=== PATIENT | male | born 1950 | race Caucasian/White ===

== ENCOUNTER 2023-02-01 04:38 | Emergency (ER) | payer MEDICARE, BC ==
[2023-02-01 05:28] LABS: HEMATOCRIT 42.5 % (38.3-50.1); HEMOGLOBIN 13.8 g/dL (12.9-17.7); MEAN CORPUSCULAR HEMOGLOBIN 28.5 pg (27.0-33.3); MEAN CORPUSCULAR HGB CONC 32.5 g/dL (28.7-35.3); MEAN CORPUSCULAR VOLUME 87.8 fL (80.8-98.7); PLATELET COUNT,PLT 43 x10(3)uL (117-477); RED BLOOD CELL COUNT 4.85 x10(6)uL (3.90-5.90); WHITE BLOOD CELL COUNT,WBC 21.8 x10-3/uL (3.2-10.1)
[2023-02-01] MEDS: Nitroglycerin 0.4 MG Tab.SL SL PRN ×2 (05:30→05:38)
[2023-02-01 05:33] LABS: BLOOD UREA NITROGEN,BUN 13 mg/dL (7-18); BUN/CREATININE RATIO 11.8 (9-20); CALCIUM 8.3 mg/dL (8.6-10.2); CARBON DIOXIDE,CO2 28 mmol/L (21-32); CHLORIDE,CL 104 mmol/L (100-110); CREATININE 1.1 mg/dL (0.70-1.30); EST CRCL DRUG DOSING (CG) 66.58 mL/min; ESTIMATED GFR 70 mL/min (>60); GLUCOSE RANDOM 123 mg/dL (80-116); POTASSIUM,K 3.7 mmol/L (3.5-5.3); SODIUM,NA 140 mmol/L (135-145)
[2023-02-01 05:37] LABS: A/G RATIO 0.7; ALANINE AMINOTRANSFERASE,ALT 21 U/L (12-36); ALKALINE PHOSPHATASE 213 IU/L (56-112); ASPARTATE AMNIOTRANSFERASE,AST 46 IU/L (5-25); BILIRUBIN TOTAL 0.8 mg/dL (0.1-1.3); PROTEIN TOTAL,TP 7.4 g/dL (6.0-8.0)
[2023-02-01] MEDS ORDERED: Aspirin 81 MG Tab.Chew PO ONE (05:40)
[2023-02-01 05:41] LABS: INR 1.35 (1.00-1.24); PROTHROMBIN TIME 13.8 sec (9.0-11.1); PTT,PARTIAL THROMBOPLSTIN TIME 33.1 SECONDS (24.4-33.2)
[2023-02-01 05:58] LABS: BAND PERCENT MAN 6 % (0-6); LYMPHOCYTES PERCENT MAN 6 % (13-37); METAMYELOCYTE PERCENT MAN 3 % (0-0); MONOCYTES PERCENT MAN 6 % (4-12); SEG NEUTROPHILS PERCENT MAN 79 % (46-82)
== END 2023-02-01 06:10 | disposition home or self-care (01) ==
LOC: FB.ED 04:38
DX: I25.10 Atherosclerotic heart disease of native coronary artery without angina pectoris (principal); E78.00 Pure hypercholesterolemia, unspecified; I10 Essential (primary) hypertension; I25.2 Old myocardial infarction; J45.909 Unspecified asthma, uncomplicated; E66.9 Obesity, unspecified; Z68.38 Body mass index [BMI] 38.0-38.9, adult; Z79.899 Other long term (current) drug therapy
CPT/HCPCS: 36415; 80053; 84484; 85025; 85610; 85730; 93005; 99285; A9270

== ENCOUNTER 2023-04-01 08:28 | Inpatient (IN) | payer MEDICARE, BC ==
[2023-04-01] MEDS ORDERED: Ondansetron 4 MG Tab.DIS PO PRN (15:10)
[2023-04-01] MEDS ORDERED: Prochlorperazine 10 MG Tab PO PRN (15:10)
[2023-04-01] MEDS ORDERED: Sennosides/Docusate Sodium 50-8.6 MG Tab PO PRN (15:10)
[2023-04-01] MEDS ORDERED: Albuterol 8 GM Inhaler INH PRN (15:10)
[2023-04-01] MEDS ORDERED: Bisacodyl 10 MG Supp RECTAL PRN (15:10)
[2023-04-01] MEDS ORDERED: Benzocaine/Cetylpyridinium/Menthol Lozenge MUCMEM PRN (15:44)
[2023-04-01] MEDS ORDERED: Benzonatate 100 MG Cap PO SCH (16:00)
[2023-04-01] MEDS: Benzonatate 100 MG Cap PO PRN (19:21)
[2023-04-01] MEDS: Rosuvastatin 20 MG Tab PO SCH (20:57)
[2023-04-01] MEDS: Formoterol/Mometasone 200-5 MCG 8.8 GM Inhaler IH SCH (20:57)
[2023-04-01] MEDS: Cefuroxime 250 MG Tab PO SCH (20:57)
[2023-04-01] MEDS: Tamsulosin 0.4 MG Cap.ER PO SCH (20:58)
[2023-04-01] MEDS: Melatonin 3 MG Tab PO SCH (20:58)
[2023-04-01] MEDS: valACYclovir 500 MG Tab PO SCH (20:59)
[2023-04-02] MEDS: Benzonatate 100 MG Cap PO PRN ×2 (02:00→20:20)
[2023-04-02] MEDS: Albuterol/Ipratropium 3.0-0.5 MG/3 ML Neb Soln NEB PRN ×3 (02:09→21:53)
[2023-04-02] MEDS: Potassium Chloride 20 MEQ Tab.ER PO SCH (08:19)
[2023-04-02] MEDS: Multivitamins with Iron/Calcium/Folic Acid/Minerals Tab PO SCH (08:20)
[2023-04-02] MEDS: Formoterol/Mometasone 200-5 MCG 8.8 GM Inhaler IH SCH ×2 (08:20→20:10)
[2023-04-02] MEDS: Furosemide 40 MG Tab PO SCH (08:20)
[2023-04-02] MEDS: Aspirin 81 MG Tab.Chew PO SCH (08:20)
[2023-04-02] MEDS: Cefuroxime 250 MG Tab PO SCH ×2 (08:20→20:09)
[2023-04-02] MEDS: VENETOCLAX 100 MG PO SCH (08:21)
[2023-04-02] MEDS: valACYclovir 500 MG Tab PO SCH ×2 (08:21→20:11)
[2023-04-02] MEDS: Metoprolol Succinate 50 MG Tab.ER PO SCH (09:12)
[2023-04-02] MEDS: Rosuvastatin 20 MG Tab PO SCH (20:10)
[2023-04-02] MEDS: Tamsulosin 0.4 MG Cap.ER PO SCH (20:10)
[2023-04-02] MEDS: Melatonin 3 MG Tab PO SCH (20:11)
[2023-04-03] MEDS: guaiFENesin/Dextromethorphan 100-10 MG/5 ML Soln 5 ML Cup PO PRN (00:50)
[2023-04-03] MEDS: Albuterol/Ipratropium 3.0-0.5 MG/3 ML Neb Soln NEB PRN ×3 (03:33→20:50)
[2023-04-03] MEDS: Benzonatate 100 MG Cap PO PRN ×2 (03:34→18:25)
[2023-04-03] MEDS: Aspirin 81 MG Tab.Chew PO SCH (08:24)
[2023-04-03] MEDS: Potassium Chloride 20 MEQ Tab.ER PO SCH (08:24)
[2023-04-03] MEDS: valACYclovir 500 MG Tab PO SCH ×2 (08:24→20:49)
[2023-04-03] MEDS: Multivitamins with Iron/Calcium/Folic Acid/Minerals Tab PO SCH (08:24)
[2023-04-03] MEDS: Furosemide 40 MG Tab PO SCH (08:24)
[2023-04-03] MEDS: VENETOCLAX 100 MG PO SCH (08:25)
[2023-04-03] MEDS: Cefuroxime 250 MG Tab PO SCH (08:25)
[2023-04-03] MEDS: Formoterol/Mometasone 200-5 MCG 8.8 GM Inhaler IH SCH ×2 (08:25→20:48)
[2023-04-03] MEDS: Metoprolol Succinate 50 MG Tab.ER PO SCH (13:33)
[2023-04-03] MEDS: Rosuvastatin 20 MG Tab PO SCH (20:48)
[2023-04-03] MEDS: Tamsulosin 0.4 MG Cap.ER PO SCH (20:48)
[2023-04-03] MEDS: Melatonin 3 MG Tab PO SCH (20:49)
[2023-04-04] MEDS: Albuterol/Ipratropium 3.0-0.5 MG/3 ML Neb Soln NEB PRN ×4 (01:03→22:22)
[2023-04-04] MEDS: Benzonatate 100 MG Cap PO PRN ×2 (02:25→22:22)
[2023-04-04] MEDS: guaiFENesin/Dextromethorphan 100-10 MG/5 ML Soln 5 ML Cup PO PRN ×2 (02:27→22:22)
[2023-04-04 06:42] LABS: HEMOGLOBIN 7.8 g/dL (12.9-17.7)
[2023-04-04 06:44] LABS: HEMATOCRIT 23.2 % (38.3-50.1); MEAN CORPUSCULAR HEMOGLOBIN 32.3 pg (27.0-33.3); MEAN CORPUSCULAR HGB CONC 33.8 g/dL (28.7-35.3); MEAN CORPUSCULAR VOLUME 95.6 fL (80.8-98.7); PLATELET COUNT,PLT 159 x10(3)uL (117-477); RED BLOOD CELL COUNT 2.42 x10(6)uL (3.90-5.90); RED CELL DISTRIBUTION WIDTH 22.7 % (12.4-15.0)
[2023-04-04 06:49] LABS: A/G RATIO 0.4; ALANINE AMINOTRANSFERASE,ALT 56 U/L (12-36); ALKALINE PHOSPHATASE 347 IU/L (56-112); ASPARTATE AMNIOTRANSFERASE,AST 80 IU/L (5-25); BILIRUBIN TOTAL 1.1 mg/dL (0.1-1.3); BLOOD UREA NITROGEN,BUN 21 mg/dL (7-18); BUN/CREATININE RATIO 23.3 (9-20); CALCIUM 7.1 mg/dL (8.6-10.2); CARBON DIOXIDE,CO2 31 mmol/L (21-32); CHLORIDE,CL 101 mmol/L (100-110); CREATININE 0.9 mg/dL (0.70-1.30); EST CRCL DRUG DOSING (CG) 80.15 mL/min; ESTIMATED GFR 89 mL/min (>60); GLUCOSE RANDOM 100 mg/dL (80-116); LACTATE DEHYDROGENASE,LDH 91 U/L (85-227); POTASSIUM,K 3.3 mmol/L (3.5-5.3); PROTEIN TOTAL,TP 5.1 g/dL (6.0-8.0); SODIUM,NA 135 mmol/L (135-145)
[2023-04-04 06:51] LABS: ALBUMIN 1.4 g/dL (3.2-4.6); WHITE BLOOD CELL COUNT,WBC 0.2 x10-3/uL (3.2-10.1)
[2023-04-04 07:28] LABS: LYMPHOCYTES PERCENT MAN 82 % (13-37); SEG NEUTROPHILS PERCENT MAN 14 % (46-82)
[2023-04-04 07:29] LABS: MONOCYTES PERCENT MAN 4 % (4-12)
[2023-04-04 07:32] LABS: ANISOCYTOSIS FEW
[2023-04-04] MEDS: Multivitamins with Iron/Calcium/Folic Acid/Minerals Tab PO SCH (08:35)
[2023-04-04] MEDS: Potassium Chloride 20 MEQ Tab.ER PO SCH (08:35)
[2023-04-04] MEDS: Aspirin 81 MG Tab.Chew PO SCH (08:35)
[2023-04-04] MEDS: Furosemide 40 MG Tab PO SCH (08:35)
[2023-04-04] MEDS: Formoterol/Mometasone 200-5 MCG 8.8 GM Inhaler IH SCH ×2 (08:38→20:27)
[2023-04-04] MEDS: valACYclovir 500 MG Tab PO SCH ×2 (08:38→20:28)
[2023-04-04] MEDS: VENETOCLAX 100 MG PO SCH (08:38)
[2023-04-04] MEDS: Melatonin 3 MG Tab PO SCH (20:28)
[2023-04-04] MEDS: Tamsulosin 0.4 MG Cap.ER PO SCH (20:28)
[2023-04-04] MEDS: Rosuvastatin 20 MG Tab PO SCH (20:29)
[2023-04-05] MEDS: Potassium Chloride 20 MEQ Tab.ER PO SCH (08:42)
[2023-04-05] MEDS: Furosemide 40 MG Tab PO SCH (08:43)
[2023-04-05] MEDS: Aspirin 81 MG Tab.Chew PO SCH (08:43)
[2023-04-05] MEDS: valACYclovir 500 MG Tab PO SCH ×2 (08:43→20:11)
[2023-04-05] MEDS: Multivitamins with Iron/Calcium/Folic Acid/Minerals Tab PO SCH (08:43)
[2023-04-05] MEDS: Formoterol/Mometasone 200-5 MCG 8.8 GM Inhaler IH SCH ×2 (08:43→20:11)
[2023-04-05] MEDS: Benzonatate 100 MG Cap PO PRN ×2 (17:10→23:05)
[2023-04-05] MEDS: Albuterol/Ipratropium 3.0-0.5 MG/3 ML Neb Soln NEB PRN ×2 (17:10→23:05)
[2023-04-05] MEDS: Rosuvastatin 20 MG Tab PO SCH (20:11)
[2023-04-05] MEDS: Melatonin 3 MG Tab PO SCH (20:11)
[2023-04-05] MEDS: Tamsulosin 0.4 MG Cap.ER PO SCH (20:11)
[2023-04-05] MEDS: guaiFENesin/Dextromethorphan 100-10 MG/5 ML Soln 5 ML Cup PO PRN (23:05)
[2023-04-06 05:58] LABS: HEMATOCRIT 23.1 % (38.3-50.1); HEMOGLOBIN 7.8 g/dL (12.9-17.7); MEAN CORPUSCULAR HEMOGLOBIN 32.7 pg (27.0-33.3); MEAN CORPUSCULAR HGB CONC 33.6 g/dL (28.7-35.3); MEAN CORPUSCULAR VOLUME 97.2 fL (80.8-98.7); MEAN PLATELET VOLUME 7.3 fL (6.7-11.0); PLATELET COUNT,PLT 204 x10(3)uL (117-477); RED BLOOD CELL COUNT 2.38 x10(6)uL (3.90-5.90); RED CELL DISTRIBUTION WIDTH 22.4 % (12.4-15.0)
[2023-04-06 06:13] LABS: WHITE BLOOD CELL COUNT,WBC 0.2 x10-3/uL (3.2-10.1)
[2023-04-06 06:34] LABS: LYMPHOCYTES PERCENT MAN 60 % (13-37); MONOCYTES PERCENT MAN 20 % (4-12); SEG NEUTROPHILS PERCENT MAN 20 % (46-82)
[2023-04-06] MEDS: Furosemide 40 MG Tab PO SCH (09:26)
[2023-04-06] MEDS: valACYclovir 500 MG Tab PO SCH ×2 (09:26→21:35)
[2023-04-06] MEDS: Aspirin 81 MG Tab.Chew PO SCH (09:26)
[2023-04-06] MEDS: Potassium Chloride 20 MEQ Tab.ER PO SCH (09:26)
[2023-04-06] MEDS: Metoprolol Succinate 50 MG Tab.ER PO SCH (09:27)
[2023-04-06] MEDS: Multivitamins with Iron/Calcium/Folic Acid/Minerals Tab PO SCH (09:27)
[2023-04-06] MEDS: Formoterol/Mometasone 200-5 MCG 8.8 GM Inhaler IH SCH ×2 (09:46→21:34)
[2023-04-06] MEDS: Ferrous Sulfate 325 MG Tab PO SCH (11:25)
[2023-04-06] MEDS: Albuterol/Ipratropium 3.0-0.5 MG/3 ML Neb Soln NEB PRN ×2 (18:17→23:20)
[2023-04-06] MEDS: Rosuvastatin 20 MG Tab PO SCH (21:34)
[2023-04-06] MEDS: Tamsulosin 0.4 MG Cap.ER PO SCH (21:34)
[2023-04-06] MEDS: Melatonin 3 MG Tab PO SCH (21:34)
[2023-04-06] MEDS: Benzonatate 100 MG Cap PO PRN (23:20)
[2023-04-06] MEDS: guaiFENesin/Dextromethorphan 100-10 MG/5 ML Soln 5 ML Cup PO PRN (23:37)
[2023-04-07] MEDS: valACYclovir 500 MG Tab PO SCH ×2 (08:53→20:38)
[2023-04-07] MEDS: Multivitamins with Iron/Calcium/Folic Acid/Minerals Tab PO SCH (08:53)
[2023-04-07] MEDS: Formoterol/Mometasone 200-5 MCG 8.8 GM Inhaler IH SCH ×2 (08:54→20:39)
[2023-04-07] MEDS: Potassium Chloride 20 MEQ Tab.ER PO SCH (08:54)
[2023-04-07] MEDS: Ferrous Sulfate 325 MG Tab PO SCH (08:54)
[2023-04-07] MEDS: Aspirin 81 MG Tab.Chew PO SCH (08:54)
[2023-04-07] MEDS: Furosemide 40 MG Tab PO SCH (08:54)
[2023-04-07] MEDS: Metoprolol Succinate 50 MG Tab.ER PO SCH (10:02)
[2023-04-07] MEDS: Acetaminophen 500 MG Tab PO PRN (18:50)
[2023-04-07] MEDS: Albuterol/Ipratropium 3.0-0.5 MG/3 ML Neb Soln NEB PRN ×2 (19:06→23:10)
[2023-04-07] MEDS: Rosuvastatin 20 MG Tab PO SCH (20:38)
[2023-04-07] MEDS: Melatonin 3 MG Tab PO SCH (20:38)
[2023-04-07] MEDS: Tamsulosin 0.4 MG Cap.ER PO SCH (20:39)
[2023-04-07 21:02] LABS: BILIRUBIN,URINE NEGATIVE (NEGATIVE); GLUCOSE,URINE NORMAL (NORMAL); KETONES,URINE NEGATIVE (NEGATIVE); LEUKOCYTE ESTERASE,URINE NEGATIVE (NEGATIVE); NITRITE,URINE NEGATIVE (NEGATIVE); OCCULT BLOOD,URINE NEGATIVE (NEGATIVE); PROTEIN,URINE NEGATIVE (NEGATIVE); UROBILINOGEN,URINE 4 mg/dL (NEGATIVE)
[2023-04-07 21:18] LABS: APPEARANCE,URINE CLEAR (CLEAR); BACTERIA,URINE FEW (NS); COLOR,URINE ORANGE (YELLOW); RBC,URINE 0-5 (0-5); SQUAMOUS EPITHELIAL CELLS,UR FEW (NS,R,O); WBC,URINE 0-5 (0-5)
[2023-04-07] MEDS: guaiFENesin/Dextromethorphan 100-10 MG/5 ML Soln 5 ML Cup PO PRN (23:10)
[2023-04-07] MEDS: Benzonatate 100 MG Cap PO PRN (23:10)
[2023-04-08 06:46] LABS: HEMOGLOBIN 7.5 g/dL (12.9-17.7)
[2023-04-08 06:48] LABS: HEMATOCRIT 22.2 % (38.3-50.1); MEAN CORPUSCULAR HEMOGLOBIN 33.5 pg (27.0-33.3); MEAN CORPUSCULAR HGB CONC 33.9 g/dL (28.7-35.3); MEAN CORPUSCULAR VOLUME 98.7 fL (80.8-98.7); MEAN PLATELET VOLUME 7.8 fL (6.7-11.0); PLATELET COUNT,PLT 186 x10(3)uL (117-477); RED BLOOD CELL COUNT 2.25 x10(6)uL (3.90-5.90); RED CELL DISTRIBUTION WIDTH 23.1 % (12.4-15.0)
[2023-04-08 07:07] LABS: WHITE BLOOD CELL COUNT,WBC 0.2 x10-3/uL (3.2-10.1)
[2023-04-08 07:27] LABS: LYMPHOCYTES PERCENT MAN 92 % (13-37); MONOCYTES PERCENT MAN 4 % (4-12); SEG NEUTROPHILS PERCENT MAN 4 % (46-82)
[2023-04-08] MEDS: Potassium Chloride 20 MEQ Tab.ER PO SCH (09:32)
[2023-04-08] MEDS: Aspirin 81 MG Tab.Chew PO SCH (09:32)
[2023-04-08] MEDS: Formoterol/Mometasone 200-5 MCG 8.8 GM Inhaler IH SCH ×2 (09:32→20:46)
[2023-04-08] MEDS: Ferrous Sulfate 325 MG Tab PO SCH (09:32)
[2023-04-08] MEDS: Furosemide 40 MG Tab PO SCH (09:33)
[2023-04-08] MEDS: valACYclovir 500 MG Tab PO SCH ×2 (09:34→20:46)
[2023-04-08] MEDS: Multivitamins with Iron/Calcium/Folic Acid/Minerals Tab PO SCH (09:34)
[2023-04-08] MEDS: Albuterol/Ipratropium 3.0-0.5 MG/3 ML Neb Soln NEB PRN ×2 (18:17→23:51)
[2023-04-08] MEDS: Acetaminophen 500 MG Tab PO PRN (20:44)
[2023-04-08] MEDS: Melatonin 3 MG Tab PO SCH (20:45)
[2023-04-08] MEDS: Rosuvastatin 20 MG Tab PO SCH (20:46)
[2023-04-08] MEDS: Tamsulosin 0.4 MG Cap.ER PO SCH (20:46)
[2023-04-08] MEDS: Benzonatate 100 MG Cap PO PRN (23:50)
[2023-04-09] MEDS: Aspirin 81 MG Tab.Chew PO SCH (08:19)
[2023-04-09] MEDS: Potassium Chloride 20 MEQ Tab.ER PO SCH (08:20)
[2023-04-09] MEDS: Furosemide 40 MG Tab PO SCH (08:20)
[2023-04-09] MEDS: Formoterol/Mometasone 200-5 MCG 8.8 GM Inhaler IH SCH (08:20)
[2023-04-09] MEDS: Ferrous Sulfate 325 MG Tab PO SCH (08:20)
[2023-04-09] MEDS: Multivitamins with Iron/Calcium/Folic Acid/Minerals Tab PO SCH (08:21)
[2023-04-09] MEDS: valACYclovir 500 MG Tab PO SCH (08:21)
== END 2023-04-09 09:23 | disposition home or self-care (01) | DRG 947 ==
LOC: FB.MS 13:48
PROVIDERS: ADMIT Family Medicine; ATTEND Family Medicine
DX: R53.1 Weakness (principal); E43 Unspecified severe protein-calorie malnutrition; C92.00 Acute myeloblastic leukemia, not having achieved remission; D61.818 Other pancytopenia; I25.10 Atherosclerotic heart disease of native coronary artery without angina pectoris; I10 Essential (primary) hypertension; N40.0 Benign prostatic hyperplasia without lower urinary tract symptoms; E78.5 Hyperlipidemia, unspecified; E78.00 Pure hypercholesterolemia, unspecified; J45.909 Unspecified asthma, uncomplicated; E66.9 Obesity, unspecified; G47.00 Insomnia, unspecified; R13.10 Dysphagia, unspecified; Z68.32 Body mass index [BMI] 32.0-32.9, adult; Z95.5 Presence of coronary angioplasty implant and graft; Z79.82 Long term (current) use of aspirin; I25.2 Old myocardial infarction; Z79.899 Other long term (current) drug therapy; Z98.890 Other specified postprocedural states
CPT/HCPCS: 36415; 80053; 81001; 83615; 84550; 85025; 94640; 97110-GO; 97116-GP; 97161-GP; 97165-GO; 97530-GO; 97530-GP; 97535-GO; A9270-GY; J7620

== ENCOUNTER 2023-04-12 23:06 | Emergency (ER) | payer MEDICARE, BC | END 2023-04-13 00:05 | disposition home or self-care (01) | LOC: FB.ED 23:06 | DX: N36.8 Other specified disorders of urethra (principal) | CPT/HCPCS: 51798; 99283 ==

== ENCOUNTER 2023-04-15 14:17 | Emergency (ER) | payer MEDICARE, BC ==
[2023-04-15] MEDS ORDERED: Sodium Chloride 0.9% 10 ML Syringe FLUSH PRN (14:41)
[2023-04-15 15:19] LABS: BASE EXCESS VENOUS,POC 3 mmol/L (-2 - 3+); PCO2 VENOUS,POC 43 mmHg (41-51); PH VENOUS,POC 7.41 pH Units (7.32-7.43)
[2023-04-15 15:30] LABS: MEAN PLATELET VOLUME 7.7 fL (6.7-11.0)
[2023-04-15 15:31] LABS: BLOOD UREA NITROGEN,BUN 18 mg/dL (7-18); CALCIUM 7.8 mg/dL (8.6-10.2); CARBON DIOXIDE,CO2 28 mmol/L (21-32); CHLORIDE,CL 104 mmol/L (100-110); CREATININE 0.9 mg/dL (0.70-1.30); EST CRCL DRUG DOSING (CG) 80.15 mL/min; ESTIMATED GFR 89 mL/min (>60); GLUCOSE RANDOM 149 mg/dL (80-116); SODIUM,NA 136 mmol/L (135-145)
[2023-04-15 15:32] LABS: HEMATOCRIT 28.5 % (38.3-50.1); HEMOGLOBIN 9.6 g/dL (12.9-17.7); MEAN CORPUSCULAR HEMOGLOBIN 34.1 pg (27.0-33.3); MEAN CORPUSCULAR HGB CONC 33.7 g/dL (28.7-35.3); MEAN CORPUSCULAR VOLUME 101.2 fL (80.8-98.7); PLATELET COUNT,PLT 95 x10(3)uL (117-477); RED BLOOD CELL COUNT 2.81 x10(6)uL (3.90-5.90); RED CELL DISTRIBUTION WIDTH 23.8 % (12.4-15.0)
[2023-04-15 15:37] LABS: A/G RATIO 0.6; ALANINE AMINOTRANSFERASE,ALT 86 U/L (12-36); ALKALINE PHOSPHATASE 286 IU/L (56-112); ASPARTATE AMNIOTRANSFERASE,AST 77 IU/L (5-25); BILIRUBIN TOTAL 0.8 mg/dL (0.1-1.3); MAGNESIUM 1.4 mg/dL (1.8-2.5); PROTEIN TOTAL,TP 5.6 g/dL (6.0-8.0)
[2023-04-15 15:44] LABS: C-REACTIVE PROTEIN 2.28 mg/dL (<0.33); TROPONIN I 6.6 pg/mL (4.0-60.3)
[2023-04-15 15:55] LABS: WHITE BLOOD CELL COUNT,WBC 0.2 x10-3/uL (3.2-10.1)
[2023-04-15 16:25] LABS: BILIRUBIN,URINE NEGATIVE (NEGATIVE); GLUCOSE,URINE NORMAL (NORMAL); KETONES,URINE NEGATIVE (NEGATIVE); LEUKOCYTE ESTERASE,URINE NEGATIVE (NEGATIVE); NITRITE,URINE NEGATIVE (NEGATIVE); OCCULT BLOOD,URINE LARGE (NEGATIVE); PROTEIN,URINE NEGATIVE (NEGATIVE); UROBILINOGEN,URINE 1 mg/dL (NEGATIVE)
[2023-04-15 16:27] LABS: APPEARANCE,URINE CLEAR (CLEAR); BACTERIA,URINE RARE (NS); COLOR,URINE YELLOW (YELLOW); SQUAMOUS EPITHELIAL CELLS,UR OCCASIONAL (NS,R,O); WBC,URINE 0-5 (0-5)
[2023-04-15 16:49] LABS: LYMPHOCYTES PERCENT MAN 64 % (13-37); MONOCYTES PERCENT MAN 4 % (4-12); SEG NEUTROPHILS PERCENT MAN 32 % (46-82)
[2023-04-15] MEDS ORDERED: Iopamidol 755 Mg/ML 100 ML Bottle IV ONE (16:54)
[2023-04-15] MEDS ORDERED: Magnesium Sulfate/Water 50 ML IV ONE (17:00)
[2023-04-15 18:29] VITALS: BP 112/57; PULSE 81
== END 2023-04-15 19:13 ==
LOC: FB.ED 14:17
DX: J90 Pleural effusion, not elsewhere classified (principal); I25.10 Atherosclerotic heart disease of native coronary artery without angina pectoris; I25.2 Old myocardial infarction; Z95.5 Presence of coronary angioplasty implant and graft; Z87.891 Personal history of nicotine dependence
CPT/HCPCS: 36415; 71046; 71275; 80053; 81001; 83735; 83880; 84484; 85025; 85379; 86140; 93005; 93010; 96365; 99285; 99285-25; J3475; J3490; Q9967